=== PATIENT | male | born 1985 | race African-American/Black ===

== ENCOUNTER 2019-12-18 20:20 | Emergency (ER) | payer OTHER ==
[~2019-12-18] VITALS: Ht 182.9 cm; Wt 82.0 kg
[2019-12-18] MEDS ORDERED: IBUPROFEN 600MG TABLET PO ONE (22:30)
[2019-12-18 23:22] VITALS: BP 125/85
== END 2019-12-18 23:23 | disposition home or self-care (01) ==
LOC: ER 20:20
DX: S16.1XXA Strain of muscle, fascia and tendon at neck level, initial encounter (principal); S20.211A Contusion of right front wall of thorax, initial encounter; V49.88XA Car occupant (driver) (passenger) injured in other specified transport accidents, initial encounter; Y93.89 Activity, other specified; Y92.89 Other specified places as the place of occurrence of the external cause; Y99.8 Other external cause status
CPT/HCPCS: 71045; 93005; 99283

== ENCOUNTER 2023-03-11 00:08 | Emergency (ER) | payer SELFPAY ==
[~2023-03-11] VITALS: Ht 177.8 cm; Wt 70.0 kg
[2023-03-11 00:19] VITALS: O2SAT 98
[2023-03-11 03:21] LABS: BASOPHILS % 0.5 % (0.0-2.0); DIFFERENTIAL COMMENT 0; EOSINOPHILS % 0.5 % (0.0-5.0); HEMATOCRIT. 43.3 % (42.0-52.0); HEMOGLOBIN. 14.6 g/dL (14.0-18.0); LYMPHOCYTES % 36.4 % (20.0-50.0); MEAN CORPUSCULAR HEMOGLOBIN 35.2 pg (28.0-32.0); MEAN CORPUSCULAR HGB CONC 33.6 g/dL (31.0-37.0); MEAN CORPUSCULAR VOLUME 104.7 fL (80.0-94.0); MEAN PLATELET VOLUME 7.4 fl (7.4-10.4); MONOCYTES % 7.9 % (2.0-8.0); NEUTROPHILS % 54.7 % (40.0-76.0); PLATELET 313 x1000/uL (130-400); RED BLOOD CELL COUNT 4.14 mill/uL (4.7-6.1); RED CELL DISTRIBUTION WIDTH 16.4 % (11.6-14.6); WHITE BLOOD COUNT 7.8 x1000/uL (4.5-11.0)
[2023-03-11 03:36] LABS: ALANINE AMINOTRANSFERASE 16 IU/L (10-49); ALBUMIN 4.6 g/dL (3.2-4.8); ASPARTATE AMINOTRANSFERASE 25 IU/L (<34); BILIRUBIN TOTAL 0.2 mg/dL (0.1-1.0); CALCIUM 8.6 mg/dL (8.7-10.4); CARBON DIOXIDE 31 mEq/L (21-32); CHLORIDE 110 mEq/L (98-107); CREATININE 0.8 mg/dL (0.6-1.3); GLUCOSE 77 mg/dL (70-105); POTASSIUM 3.8 mEq/L (3.5-5.1); PROTEIN TOTAL 7.6 g/dL (6.0-8.3); SODIUM 148 mEq/L (136-145); UREA NITROGEN BLOOD 8 mg/dL (9-23)
[2023-03-11 03:38] VITALS: TEMP 98.5
[2023-03-11 03:45] LABS: ETHANOL BLOOD 463 mg/dL (<10)
[2023-03-11 06:32] VITALS: BP 120/89; PULSE 74; RESP 16
== END 2023-03-11 06:56 | disposition home or self-care (01) ==
LOC: ER 00:11
DX: S00.81XA Abrasion of other part of head, initial encounter (principal); F10.129 Alcohol abuse with intoxication, unspecified; X58.XXXA Exposure to other specified factors, initial encounter; Y93.89 Activity, other specified; Y92.89 Other specified places as the place of occurrence of the external cause; Y99.8 Other external cause status; Y90.8 Blood alcohol level of 240 mg/100 ml or more
CPT/HCPCS: 36415; 80053; 80320; 85025; 99284; G0480

== ENCOUNTER 2023-06-05 18:25 | Inpatient (IN) | payer SELFPAY ==
[~2023-06-05] VITALS: Ht 175.3 cm; Wt 61.2 kg
[2023-06-05 22:58] LABS: BASOPHILS % 0.6 % (0.0-2.0); EOSINOPHILS % 2.6 % (0.0-5.0); HEMOGLOBIN. 13.1 g/dL (14.0-18.0); LYMPHOCYTES % 42.8 % (20.0-50.0); MEAN CORPUSCULAR HEMOGLOBIN 36.9 pg (28.0-32.0); MEAN CORPUSCULAR HGB CONC 33.5 g/dL (31.0-37.0); MEAN CORPUSCULAR VOLUME 110.2 fL (80.0-94.0); MEAN PLATELET VOLUME 7.7 fl (7.4-10.4); MONOCYTES % 10.3 % (2.0-8.0); NEUTROPHILS % 43.7 % (40.0-76.0); PLATELET 158 x1000/uL (130-400); RED BLOOD CELL COUNT 3.54 mill/uL (4.7-6.1); RED CELL DISTRIBUTION WIDTH 19.3 % (11.6-14.6); WHITE BLOOD COUNT 4.7 x1000/uL (4.5-11.0)
[2023-06-05 23:01] LABS: ADD RBC MORPHOLOGY YES; DIFFERENTIAL COMMENT 1
[2023-06-05 23:20] LABS: ACETAMINOPHEN < 2 ug/mL (10-30); ALANINE AMINOTRANSFERASE 102 IU/L (10-49); ALBUMIN 4.3 g/dL (3.2-4.8); ASPARTATE AMINOTRANSFERASE 200 IU/L (<34); BILIRUBIN TOTAL 0.3 mg/dL (0.1-1.0); CALCIUM 8.1 mg/dL (8.7-10.4); CARBON DIOXIDE 33 mEq/L (21-32); CHLORIDE 106 mEq/L (98-107); CREATININE 0.6 mg/dL (0.6-1.3); GLUCOSE 83 mg/dL (70-105); PROTEIN TOTAL 7.5 g/dL (6.0-8.3); SODIUM 145 mEq/L (136-145); UREA NITROGEN BLOOD 6 mg/dL (9-23)
[2023-06-05 23:22] LABS: ETHANOL BLOOD 453 mg/dL (<10); POTASSIUM 2.4 mEq/L (3.5-5.1)
[2023-06-05 23:31] LABS: PLATELET ESTIMATE NORMAL
[2023-06-05 23:32] LABS: ANISOCYTOSIS 2+
[2023-06-06] VITALS (7 sets, daily range): BP systolic 114–180; BP diastolic 58–119; PULSE 20–88; RESP 18–20; TEMP 98–100.4; O2SAT 98
[2023-06-06] MEDS: SODIUM CHLORIDE 0.9% 1,000 ML IV ONE (00:11)
[2023-06-06] MEDS: KCL 20MEQ/100ML PREMIX 100 ML IV SCH (00:12)
[2023-06-06] MEDS: FOLIC ACID 1 MG, THIAMINE HCL 100 MG, MVI, ADULT NO.1 10 ML in DEXTROSE 5% WATER 1,000 ML IV ONE (02:23)
[2023-06-06] MEDS ORDERED: LORAZEPAM 0.5MG TABLET PO PRN (06:00)
[2023-06-06] MEDS ORDERED: GUAIFENESIN 200MG/10ML SUGAR FREE UDC PO PRN (06:00)
[2023-06-06] MEDS ORDERED: ACETAMINOPHEN 325MG TABLET PO PRN (06:00)
[2023-06-06] MEDS ORDERED: IPRATROPIUM/ALBUTEROL 0.5-3(2.5)MG/3ML NEB HHN PRN (06:00)
[2023-06-06] MEDS ORDERED: ONDANSETRON HCL 4MG/2ML INJ IV PRN (06:00)
[2023-06-06] MEDS ORDERED: DOCUSATE SODIUM 100MG CAPSULE PO PRN (06:00)
[2023-06-06] MEDS: POTASSIUM CHLORIDE 20MEQ TABLET SR PO NR (06:58)
[2023-06-06] MEDS: ACETAMINOPHEN 325MG TABLET PO PRN (10:04)
[2023-06-06] MEDS: POTASSIUM CHLORIDE 20MEQ/PACKET PO NR (17:52)
[2023-06-06] MEDS: CLONIDINE 0.1MG TABLET PO PRN (20:08)
[2023-06-06] MEDS: CHLORDIAZEPOXIDE 25MG CAPSULE PO PRN (20:13)
[2023-06-06 20:42] LABS: TROPONIN I HIGH SENSITIVITY 7 ng/L (3.0-53)
[2023-06-06 20:46] LABS: CHOLESTEROL 232 mg/dL (<200); CREATINE KINASE 186 IU/L (46-171); CREATINE KINASE MB FRACTION 0.6 ng/mL (0.5-3.6); HDL CHOLESTEROL 102 mg/dL (>55); LDL CHOLESTEROL 115 mg/dL (5-100); PHOSPHORUS 2.2 mg/dL (2.5-4.9); THYROID STIMULATING HORMONE 1.58 uIU/mL (0.55-4.78); TRIGLYCERIDE 53 mg/dL (0-150)
[2023-06-06 20:56] LABS: FOLIC ACID (FOLATE) SERUM 14.06 ng/mL (>5.38); VITAMIN B12 SERUM 547 pg/mL (211-911)
[2023-06-07] MEDS: ZOLPIDEM TARTRATE 5MG TABLET PO PRN (00:16)
[2023-06-07 00:20] VITALS: BP 151/94; PULSE 78; RESP 18; TEMP 100
[2023-06-07 04:31] VITALS: BP 174/108; PULSE 61; RESP 18; TEMP 98.4
[2023-06-07 08:00] VITALS: BP 154/97; PULSE 53; RESP 18; TEMP 98.4
[2023-06-07] MEDS: DEXT 5%/0.9% NACL 1,000 ML IV SCH (11:30)
[2023-06-07] MEDS: HYDRALAZINE 20MG/ML VIAL IV SCH (11:44)
[2023-06-07 12:00] VITALS: BP 155/96; PULSE 55; RESP 18; TEMP 97.7
[2023-06-07] MEDS: PANTOPRAZOLE 40MG DR TABLET PO NR (12:15)
[2023-06-07 16:00] VITALS: BP 172/105; PULSE 66; RESP 18; TEMP 98.8
[2023-06-07] MEDS ORDERED: CHLORDIAZEPOXIDE 25MG CAPSULE PO PRN (18:30)
[2023-06-07] MEDS ORDERED: LORAZEPAM 1MG TABLET PO PRN ×2 (18:30→22:00)
[2023-06-07] MEDS ORDERED: THIAMINE HCL 100 MG/1 ML 2ML VIAL IM SCH (18:30)
[2023-06-07] MEDS ORDERED: FOLIC ACID 1MG TABLET PO SCH (18:30)
[2023-06-07] MEDS ORDERED: MULTIVITAMINS,THER W-MINERALS TABLET PO SCH (18:30)
[2023-06-07] MEDS: HYDRALAZINE 20MG/ML VIAL IV NR (19:04)
[2023-06-07 20:10] VITALS: BP 123/77; PULSE 89; RESP 20; TEMP 100
[2023-06-07] MEDS: THIAMINE HCL 100 MG/1 ML 2ML VIAL IM SCH (21:05)
[2023-06-07] MEDS: CHLORDIAZEPOXIDE 25MG CAPSULE PO PRN (21:05)
[2023-06-07] MEDS: FOLIC ACID 1MG TABLET PO SCH (21:05)
[2023-06-07] MEDS: MULTIVITAMINS,THER W-MINERALS TABLET PO SCH (21:05)
[2023-06-08 00:11] VITALS: BP 135/77; PULSE 74; RESP 18; TEMP 97.7
[2023-06-08 04:24] VITALS: BP 138/75; PULSE 52; RESP 18; TEMP 96.6
[2023-06-08] MEDS: LACTATED RINGERS 1,000 ML IV SCH (04:30)
[2023-06-08 08:00] VITALS: BP 140/84; PULSE 48; RESP 18; TEMP 97
[2023-06-08 10:32] VITALS: BP 140/84; PULSE 48; TEMP 97; O2SAT 96
[2023-06-10] MEDS ORDERED: THIAMINE HCL 100MG TABLET PO SCH (09:00)
== END 2023-06-08 13:05 | disposition home or self-care (01) | DRG 425 ==
LOC: ER 18:25 → EDBEDREQ 06-06 02:06 → 8WST 06-06 07:52
PROVIDERS: ADMIT Internal Medicine; ATTEND Internal Medicine
DX: E87.6 Hypokalemia (principal); E87.3 Alkalosis; E83.51 Hypocalcemia; D53.9 Nutritional anemia, unspecified; Y90.8 Blood alcohol level of 240 mg/100 ml or more; R74.01 Elevation of levels of liver transaminase levels; F19.10 Other psychoactive substance abuse, uncomplicated; F10.229 Alcohol dependence with intoxication, unspecified; F10.239 Alcohol dependence with withdrawal, unspecified
CPT/HCPCS: 36415; 80053; 80061; 80307; 80320; 80329; 82550; 82553; 82607; 82746; 83036; 83735; 84100; 84439; 84443; 84484; 85025; 99285; J0360; J3411; J3480; J3490; J7030; J7070; J7120; G0480

== ENCOUNTER 2023-10-23 16:28 | Emergency (ER) | payer SELFPAY ==
[~2023-10-23] VITALS: Ht 182.9 cm; Wt 80.0 kg
[2023-10-23 16:31] VITALS: BP 104/72; PULSE 80; RESP 18; TEMP 98.7; O2SAT 99
== END 2023-10-24 00:12 | disposition home or self-care (01) ==
LOC: ER 16:28
DX: F10.129 Alcohol abuse with intoxication, unspecified (principal); Y90.9 Presence of alcohol in blood, level not specified
CPT/HCPCS: 36415; 80320; 99283; G0480